=== PATIENT | male | born 1990 ===

== ENCOUNTER 2021-01-30 03:22 | Outpatient (CLI) | payer OTHER, SELFPAY ==
[2021-01-30 14:06] LABS: Source Nasal/Nares
[2021-01-30 17:11] LABS: COVID-19 PCR Negative (Negative)
== END 2021-01-30 03:23 | disposition home or self-care (01) ==
LOC: LBO 03:23
PROVIDERS: Visit Provider Urology
DX: Z20.822 Contact with and (suspected) exposure to COVID-19 (principal); Z01.818 Encounter for other preprocedural examination
CPT/HCPCS: 87635